=== PATIENT | female | born 1995 | race Caucasian/White ===

== ENCOUNTER 2021-05-26 21:36 | Emergency (ER) | payer SELFPAY ==
[~2021-05-26 21:36] MED LIST: VOLTAREN **OUT75 MG PO
[2021-05-27 01:20] LABS: BILIRUBIN NEGATIVE (NEGATIVE); BLOOD 3+ Ery/uL (NEGATIVE); CLARITY CLEAR (CLEAR); COLOR YELLOW (YELLOW); GLUCOSE (U) NORMAL (NORMAL); LEUKOCYTES NEGATIVE Leu/uL (NEGATIVE); NITRITE NEGATIVE (NEGATIVE); PROTEIN NEGATIVE (NEGATIVE); UROBILINOGEN 0.2 mg/dL (0.2-1.0)
[2021-05-27 01:25] LABS: BACTERIA 1+; URINARY WBC RARE
[2021-05-27] MEDS ORDERED: ONDANSETRON ODT4 MG SL (02:34)
[2021-05-27] MEDS ORDERED: IBUPROFEN800 MG PO (02:34)
[2021-05-27] MEDS ORDERED: NORCO 5-325 TA1 EACH PO (02:34)
[2021-05-27] MEDS ORDERED: FLOMAX0.4 MG PO (02:34)
== END 2021-05-27 02:51 | disposition home or self-care (01) ==
LOC: FER 21:36
PROVIDERS: Emergency Medicine Emergency Medical Services
DX: N20.1 Calculus of ureter (principal); F17.290 Nicotine dependence, other tobacco product, uncomplicated
CPT/HCPCS: 81001; 99284